=== PATIENT | male | born 1980 | race Caucasian/White ===

== ENCOUNTER 2016-11-16 08:42 | Observation (INO) | payer OTHER ==
[~2016-11-16] VITALS: Ht 168.9 cm; Wt 97.5 kg
--- NOTE | ~2016-11-16 | ER ---
PATIENT'S NAME: DIANN FLORES [facility] AGE: 36 Y [address] ROOM: [place] [address] LOCATION: [facility] ADMIT DATE: 11/16/2016 ER/Outpatient Report DISCHARGE DATE: FAMILY PHYSICIAN: ALEJANDRA FELTON MD ATTENDING PHYSICIAN: GABRIELA LAGUERRE CHIEF COMPLAINT: Finger injury. 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 He states he had to pull it back over and came in. He is otherwise healthy. He does smoke some. He denies any recent oral intake other than a few ounces of soda today. He is otherwise without significant finding. He does not remember his last tetanus shot. He has not tried anything else. PAST MEDICAL HISTORY: Documented on the record and reviewed by me. SOCIAL HISTORY: Documented on the record and reviewed by me. MEDICATIONS: Documented on the record and reviewed by me. ALLERGIES: DOCUMENTED ON THE RECORD AND REVIEWED BY ME. REVIEW OF SYSTEMS: All systems were reviewed and negative except as noted in the HPI. PHYSICAL EXAMINATION: VITAL SIGNS: Blood pressure 161/94, pulse is 69, respiratory rate is 18, temperature 96.6, SpO2 is 99% on room air. Pain is rated 4/10. GENERAL: An age-appropriate male. No obvious pain or distress, sitting upright on the exam table. NEUROLOGIC: Awake and alert. GCS 15. No focal deficits. No asymmetry on exam. HEENT: Normocephalic, atraumatic. Eyes are PERRL. Oropharynx clear. NECK: Supple. Trachea is midline. CHEST: Heart is regular rate and rhythm with no murmurs. LUNGS: Clear to auscultation bilaterally with no rhonchi, wheezes, or rales. ABDOMEN: Soft, nontender, and nondistended. No rebound or guarding. PATIENT'S NAME: DIANN FLORES [facility] AGE: 36 Y [address] ROOM: [address] [address] LOCATION: [facility] ADMIT DATE: 11/16/2016 ER/Outpatient Report DISCHARGE DATE: FAMILY PHYSICIAN: ALEJANDRA FELTON MD ATTENDING PHYSICIAN: GABRIELA LAGUERRE BACK: Nontender to palpation throughout. No CVA tenderness. EXTREMITIES: Warm and well perfused. The area in question is a large laceration over the radial aspect of the left IP joint. The patient has slightly diminished flexion and extension. He has diminished sensation on the radial aspect of the finger. There is preservation of most digital sensation, but it is slightly decreased. There is brisk capillary refill throughout the distal aspects of the digit. There is some visible bone and tendon in the wound base. SKIN: Otherwise warm, dry, and intact. LABORATORY DATA AND X-RAYS: Plain films of the involved finger are obtained and appear to involve the distal aspect of the proximal phalanx including the PIP joint. IMPRESSION: Open fracture involving the joint of the left index finger. EMERGENCY DEPARTMENT COURSE: The patient was seen and evaluated as above. Plain films were obtained. Betadine soak was initiated. He was deemed to have the open fracture. IV was started. Clindamycin was given based on the patient's allergy and side effect profile to cephalosporins. I contacted Dr. Laguerre, orthopedic surgeon, to evaluate the patient. Dr. Laguerre explored the wound. The patient will be taken to the operating room for further evaluation and treatment of his injury by Dr. Laguerre. I did discuss the case with Dr. Bland, and he will be the admitting physician. All questions were answered, and the patient was taken to the preop area in stable condition. MD ELIZ PERSON/pattie /[id number] d: 11/16/16 2243 t: 11/24/16 0912, OUTPATIENT REPORT
--- NOTE | ~2016-11-16 | OR ---
PATIENT'S NAME: ELLIOTT FLORES [facility] AGE: 36 Y [address] ROOM: [address] [place], [place] [address] LOCATION: [facility] ADMIT DATE: 11/16/2016 OR/Procedure Report DISCHARGE DATE: 11/18/2016 FAMILY PHYSICIAN: ALEJANDRA FELTON MD ATTENDING PHYSICIAN: STEVE LAGUERRE SURGEON: Steve Laguerre DO ACCOUNTANT MANAGER: DATE OF PROCEDURE: 11/16/2016 Corrected Copy per provider 11/19/16 AO POSTOPERATIVE DIAGNOSIS: Left nondominant open fracture of proximal phalanx index finger with injury to a collateral ligament, digital artery, and nerve. The fracture and tears of the articular surface. 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 POSTOPERATIVE DIAGNOSIS: Left nondominant open fracture of proximal phalanx index finger with injury to a collateral ligament, digital artery, and nerve. The fracture and tears of the articular surface. 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 PROCEDURE PERFORMED: I&D left index finger open fracture wound. TETANUS: Up-to-date. ANTIBIOTICS: In the form clindamycin due to allergy to penicillin and cephalosporins. IRRIGATION AND DEBRIDEMENT: Of the wound using 3 L as part of damage control treatment. He is scheduled to see my hand specialist partner, Dr. Beltran, on . He will be admitted for IV antibiotics. INDICATION OF PROCEDURE: Elliott Flores is a 36-year-old [id number] male who was at work processing a pig carpus, where a saw in his dominant hand, had injured his left nondominant index finger. He sustained laceration all the way down through the bone with fracture entering the articular surface of the PIP joint. He had injury to the digital artery and nerve bundle with numbness distally on the radial side. There is fracture communicating with the PIP joint. He was seen in the ED prior to digital nerve block confirming the digital arteries out. After the digital nerve block, the patient experienced normal flexion and extension. EIP tendon was visible through the wound with partial injury. It was decided at that point he needed to be taken back to the OR for formal irrigation and debridement. His tetanus was updated and the clindamycin was started. PATIENT'S NAME: ELLIOTT FLORES [facility] AGE: 36 Y [address] ROOM: [place] [address] LOCATION: [facility] ADMIT DATE: 11/16/2016 OR/Procedure Report DISCHARGE DATE: 11/18/2016 FAMILY PHYSICIAN: ALEJANDRA FELTON MD ATTENDING PHYSICIAN: STEVE LAGUERRE DESCRIPTION OF PROCEDURE He was immediately brought up to the OR under digital nerve block and performed aggressive irrigation and debridement. I had contacted my hand specialist who would like to see him on for definitive treatment. We discussed the risks, benefits, potential complications, and the goal is to decontaminate the wound to prevent infection at this time. He understands a definitive care would be done by a hand specialist. He understands he has received injury to the digital neurovascular bundle as well as deep structures including the partial tendons, capsule, and collateral ligament that will need to be repaired. During exploration, hemostasis achieved, tourniquet deployed, and 3 L had been washed out. All tissue debrided with low pressure pulsatile lavage and sharp. The necrosed portions of the skin were removed. The bone was aligned. After visualization of end of the capsule on the collateral ligament, the skin was loosely approximated with Prolene and splint placed. He will continue IV antibiotics for 48 hours and follow up with hand specialist on . Sponge and needle counts were correct x2. Complication none. STEVE LAGUERRE DO PH/modl /[id number] Corrected Copy per provider 11/19/16 AO d: 11/16/16 1757 t: 12/03/16 183, OPERATIVE SUMMARY
--- NOTE | ~2016-11-16 | DS ---
PATIENT'S NAME: DIANN FLORES [facility] AGE: 36 Y [address] ROOM: [address] [address] LOCATION: [facility] ADMIT DATE: 11/16/2016 Discharge Summary DISCHARGE DATE: 11/18/2016 FAMILY PHYSICIAN: Gregg Bower MD ATTENDING PHYSICIAN: Steve Laguerre FINAL DIAGNOSES: 1. Laceration, left index finger with associated fracture. 2. Status post operative irrigation and debridement per Dr. Laguerre. 3. Open fracture, left index finger, proximal. HOSPITAL COURSE: This 36-year-old male was admitted to the hospital to the care of Dr. Steve Laguerre after being seen in the emergency room by Dr. Josué Perry. The patient presented after injuring himself at work. 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 He was seen by Dr. Perry in the emergency room and Dr. Laguerre, orthopedic surgeon, after admission. I was asked to follow the patient for general medical care. Please see my history and physical. The patient was taken to the operating room on the date shown and had this area irrigated and debrided per Dr. Laguerre. Please see his operative note. Postop, the patient's pain management was adequate. He was given antibiotics. He was dismissed on 11/18. The patient is dismissed on the med list shown. His allergies are noted. He is dismissed on Percocet 5/325 as needed. He is followed in the office of Dr. Laguerre to see the hand surgeon, Dr. Beltran and has a scheduled appointment for that in the next couple of days. If the patient has fever, chills, or increasing pain, he should be seen back earlier. MD SHREYAS SUTTON/teodorol /[id number] d: 11/21/16 2249 t: 12/01/16 1714, DISCHARGE SUMMARY
--- NOTE | ~2016-11-16 | CON ---
PATIENT'S NAME: DIANN FLORES [facility] AGE: 36 Y [address] ROOM: [place] [address] LOCATION: [facility] ADMIT DATE: 11/16/2016 Consultation DISCHARGE DATE: FAMILY PHYSICIAN: ALEJANDRA FELTON MD ATTENDING PHYSICIAN: GABRIELA SALAS DATE OF CONSULTATION: 11/16/2016 H AND P AND CONSULT CHIEF COMPLAINT: Laceration, injury of left nondominant index finger while using a saw at work. 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 His tetanus was updated in the ER. I saw him as ER consult. Clindamycin was started as he has allergies to cephalosporins which cause nausea and vomiting, and penicillins cause anaphylaxis. He also has an allergy to codeine which causes questionable anaphylaxis per the patient. He had a digital nerve block. Under exam, he is radial digital nerve was non presumed injured. The laceration goes approximately near the PIP joint. There is a fracture that enters the articular surface of the PIP joint of the left nondominant index finger. There is presumed capsular and collateral ligament injury. He is able to perform flexion with flexor tendons that appear intact. His EIP tendon is exposed and he is able to extend. PAST MEDICAL HISTORY: Reviewed. No chronic medical problems. CURRENT MEDICATIONS: None. He is a smoker. Last p.o. intake last night. He did have some sips of soda this morning. CURRENT MEDICATIONS: None. ALLERGIES: ABOVE. PENICILLIN, CEPHALOSPORINS, AND CODEINE. X-RAYS: Show an intra-articular fracture at the PIP joint left index finger from a saw injury. TREATMENT AND PLAN: Damage control orthopedics, he has already received. Tetanus is up to date. In the ED, started antibiotics. We will plan irrigation and debridement. I will refer him to a hand specialist. He will need to see him this week. He PATIENT'S NAME: DIANN FLORES [facility] AGE: 36 Y [address] ROOM: [place] [address] LOCATION: [facility] ADMIT DATE: 11/16/2016 Consultation DISCHARGE DATE: FAMILY PHYSICIAN: ALEJANDRA FELTON MD ATTENDING PHYSICIAN: GABRIELA SALAS will be staying here for antibiotics for two days. He needs to see a hand specialist on . We will plan irrigation, debridement, and exploration of the wound and placement of a splint, definitive treatment will be by the hand specialist. The patient understands the risks, benefits, potential complications. He understands the reason for this is to prevent infection and irrigate out any potential contaminant. He understands he will need another surgery for definitive care with we washed out. We will plan on closure loosely of the wound and place him in a splint. Understands potential that his nerve that has been injured or his digital nerve may be permanently numb. He understands there can be intense rehab with the ligament of capsule and tendon injuries that can have occurred from this injury. He understands the risk of infection that he could lose life or limb. He understands potential risk of anesthesia including anaphylactic reaction. GABRIELA SALAS DO PH/modl /[id number] d: 11/16/16 1142 t: 12/03/16 1829, CONSULTATION REPORT
--- NOTE | ~2016-11-16 | CON ---
PATIENT'S NAME: DIANN FLORES [facility] AGE: 36 Y [address] ROOM: [address] [address] LOCATION: [facility] ADMIT DATE: 11/16/2016 Consultation DISCHARGE DATE: FAMILY PHYSICIAN: ALEJANDRA FELTON MD ATTENDING PHYSICIAN: STEVE LAGUERRE REFERRING PHYSICIAN: ALEJANDRA FU MD CHIEF COMPLAINT: Injury, left index finger. 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 The patient cut into his left index finger, presented to the emergency room at [facility] where he was seen by Dr. Josué Perry. Because of the injury to his index finger, Dr. Steve Laguerre, orthopedic surgeon, from [facility] on-call, was asked to see the patient and took him to the operating room for evaluation and treatment of his left index finger lesion. I have read Dr. Laguerre's history and physical. I was asked to see the patient after he had already been taken to the operating room for postoperative care. I was called by Dr. Josué Perry relating the fact the patient would be on my senses and Dr. Laguerre was taken him to the operating room from the ER. 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 He cut his index finger at work today. He really does not claim a primary care doctor, but in the past had seen Alejandra Felton MD, over [facility] infrequently. When I ask him if it was okay if I follow along and he said that was fine. He denies a history of a diabetes mellitus, hypertension, heart disease, obstructive sleep apnea, or other medical illness. ALLERGIES: HE HAS REACTED TO PENICILLIN WITH A RASH, GI UPSET WITH KEFLEX, AND HAS HAD A RASH IT SOUNDS LIKE WITH CODEINE. PREVIOUS OPERATIONS: See nurse's notes. SOCIAL HISTORY: He does not smoke. FAMILY HISTORY: Negative. PATIENT'S NAME: DIANN FLORES [facility] AGE: 36 Y [address] ROOM: [address] [address] LOCATION: [facility] ADMIT DATE: 11/16/2016 Consultation DISCHARGE DATE: FAMILY PHYSICIAN: ALEJANDRA FELTON MD ATTENDING PHYSICIAN: STEVE LAGUERRE IMMUNIZATIONS STATUS: Has been updated. He has been given a Tdap in the ER. REVIEW OF SYSTEMS: HEENT: No visual changes. No hearing problems. No sore throat. ENDOCRINE: He is not diabetic. There is no thyroid disease. LUNGS: No history of asthma. HEART: No history of hypertension, chest pain, or previous CO. GI: Does not complain of nausea, vomiting, or diarrhea. : No dysuria or frequency. EXTREMITIES: As mentioned. NEUROLOGIC: No history of seizure, syncope, or previous stroke. SKIN: No recent rashes. MENTAL STATUS: No recent depression or anxiety. PHYSICAL EXAMINATION: GENERAL: Dark-haired male, sitting in bed with a dressing and splint on his left wrist and hand. He is oriented to person, place, and time. HEENT: Pupils react to light. TMs not visualized. Posterior pharynx is clear. NECK: Unremarkable. Thyroid not enlarged. LUNGS: Clear without wheeze or rub. HEART: No murmur, gallop, or rub. ABDOMEN: Soft without point tenderness noted. PELVIC: Not done. RECTAL: Not done. EXTREMITIES: Dressing and splint on his left wrist and hand with his index finger in extension. NEUROLOGIC: Grossly intact. Cranial nerves intact. Mental status normal for age. ASSESSMENT: Acute laceration, left index finger with associated fracture. See Dr. Laguerre's note. PLAN: Follow daily. Further changes as indicated. ALEJANDRA FU MD SUBACUTE NURSE/modl PATIENT'S NAME: DIANN FLORES [facility] AGE: 36 Y [address] ROOM: [address] [address] LOCATION: [facility] ADMIT DATE: 11/16/2016 Consultation DISCHARGE DATE: FAMILY PHYSICIAN: ALEJANDRA FELTON MD ATTENDING PHYSICIAN: STEVE LAGUERRE /[id number] d: 11/16/16 2325 t: 11/21/16 1441, CONSULTATION REPORT
[2016-11-18] MEDS ORDERED: PERCOCET 5-3251 EACH PO (09:40)
== END 2016-11-18 10:40 | disposition disaster alternative care site (69) ==
LOC: GACC 08:42 → G3N 09:46
PROVIDERS: ADMIT Orthopaedic Surgery
PROC: 0JDK0ZZ Extraction of Left Hand Subcutaneous Tissue and Fascia, Open Approach (ICD-10-PCS; principal; 2016-11-16)
DX: S62.611B Displaced fracture of proximal phalanx of left index finger, initial encounter for open fracture (principal); F17.200 Nicotine dependence, unspecified, uncomplicated; Z88.0 Allergy status to penicillin; Z88.1 Allergy status to other antibiotic agents; Z88.5 Allergy status to narcotic agent; W31.2XXA Contact with powered woodworking and forming machines, initial encounter; Y93.89 Activity, other specified; Y99.0 Civilian activity done for income or pay
CPT/HCPCS: G0378; J1885; J7030; J7050